=== PATIENT | male | born 1935 | race Caucasian/White ===

== ENCOUNTER 2017-05-22 15:18 | Outpatient (CLI) | payer MEDICARE, BC ==
[2017-05-22 17:32] LABS: #Eosinphils 0.4 thou/uL (0.0-0.7); #Monocytes 0.7 thou/uL (0.11-0.59); #Neutrophils 3.8 thou/uL (1.40-6.50); %Basophils 0.6 % (0.0-1.0); %Eosinophils 5.4 % (0.0-10.0); %Lymphocytes 28.7 % (21.0-51.0); Hematocrit 34.7 % (42.0-52.0); Mean Platelet Volume 7.8 fL (7.4-10.4); Red Blood Cell (RBC) Count 3.42 mill/uL (4.70-6.10); White Blood Cell (WBC) Count 6.9 thou/uL (4.8-10.8)
[2017-05-22 17:50] LABS: Anion Gap 9 mmol/L (10-20); BUN (Urea Nitrogen) 19 mg/dL (8.4-25.7); Calc. Creatinine Clearance 0 mL/min (70-130); Calcium 8.6 mg/dL (7.8-10.44); Carbon Dioxide 26 mmol/L (23-31); Chloride 107 mmol/L (98-107); Estimated GFR-MDRD Greater than 90
--- NOTE | 2017-05-23 21:06 | EKG ---
Test Reason : Blood Pressure : / mmHG Vent. 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 Sahni ([id number]) on 05/23/2017 9:06:02 PM Referred By: JEFFREY Confirmed By:DR. Bora MARIE MD
== END 2017-05-22 15:19 | disposition home or self-care (01) ==
LOC: LABBT 15:18
PROVIDERS: ATTEND Surgery
DX: Z01.818 Encounter for other preprocedural examination (principal); K40.90 Unilateral inguinal hernia, without obstruction or gangrene, not specified as recurrent
CPT/HCPCS: 80048; 85025; 93005; 93010

== ENCOUNTER 2017-05-24 12:55 | Day surgery (SDC) | payer MEDICARE, BC ==
[2017-05-22 15:51] VITALS: BMI 27.4
[2017-05-24] MEDS ORDERED: Bupivacaine/Epinephrine 0.25% 30 ML VIAL ONE (14:14)
[2017-05-24] MEDS ORDERED: Bupivacaine PF 0.5% 30 ML VIAL ONE (14:16)
[2017-05-24] MEDS ORDERED: Fentanyl 100 MCG/2 ML VIAL ONE ×2 (14:24→15:08)
[2017-05-24] MEDS ORDERED: Promethazine HCl 25 MG/ML VIAL ONE (14:24)
[2017-05-24] MEDS ORDERED: Levofloxacin 500 mg/D5W 100 ml Premix Bag ONE (14:42)
[2017-05-24] MEDS ORDERED: Lidocaine 1% PF 5 ML VIAL ONE (14:53)
[2017-05-24] MEDS ORDERED: Ondansetron HCl/PF 4 MG/2 ML Vial ONE (14:53)
[2017-05-24] MEDS ORDERED: Propofol 200 MG/20 ML VIAL ONE (14:53)
[2017-05-24] MEDS ORDERED: ePHEDrine/0.9% NaCl/PF SYRINGE 50 mg/10 ml ONE (14:53)
[2017-05-24] MEDS ORDERED: Glycopyrrolate 0.2 MG/ML 5 ML SYRINGE ONE (14:53)
[2017-05-24] MEDS ORDERED: PHENYLEPHRINE-NS 100 MCG/ML 10 ML SYRINGE ONE (14:53)
[2017-05-24] MEDS ORDERED: HYDROcodone/Acetaminophen 5/325 mg Tablet ONE (17:05)
--- NOTE | 2017-05-24 17:45 | OP ---
DATE OF PROCEDURE: 05/24/2017 PREOPERATIVE DIAGNOSIS: Right inguinal hernia. POSTOPERATIVE DIAGNOSIS: Right inguinal hernia. PROCEDURE: Right inguinal hernia repair with mesh, PHS extended. SURGEON: Martínez Alberts M.D. ANESTHESIA: General. ESTIMATED BLOOD LOSS: Minimal. COMPLICATIONS: None. SPECIMEN: None. FINDINGS: Right inguinal hernia. TECHNIQUE: The patient was taken to the operating room and placed supine on the table. After genera l anesthetic was obtained, the right groin and abdomen shaved, prepped, and draped in a sterile fashi on. An oblique incision was made above the pubic tubercle in the right lower quadrant. Cautery was used to dissect down through Syed's to expose the external oblique. External oblique fibers were o pened along the course of the external ring. Contents of the inguinal canal were resected from the b ackside of the external oblique. The ilioinguinal nerve was found and segmentally high removed to pr event postop pain. Cord structures were mobilized on the pubic tubercle using a Vy drain. Diss ection superior medially on the cord showed there to be a large indirect hernia sac. This was dissec trev away from surrounding structures. It was opened to reveal no obvious intraabdominal contents and a high ligation was performed using silk suture. The stump inverted back into the abdominal cavity. There was also a direct defect in the floor of the inguinal canal. The preperitoneal space was prosper ntly entered through the floor of the inguinal canal and bluntly dissected using a wet unraveled Ray- Delaney. The PHS extended mesh was brought into the sterile field. The underlay was placed in the prepe ritoneal space and laid out flat against the posterior abdominal wall. The mesh was laid out flat in the inguinal floor. The mesh was sewn laterally to incorporate the internal ring. The mesh was sew n distally to the pubic tubercle, medially to the transverse arch, laterally to the shelving edge of the inguinal ligament. The two ends of cut mesh were re-attached to each other at the shelving edge of the inguinal ligament to reform the internal ring. The extra mesh was tucked back under the exter nal oblique proximally. The wound was irrigated. Local anesthetic was applied. A tunneled catheter for postop pain is left on top of the mesh for postop pain control. External oblique was closed usi ng 3-0 VicrylSyed's was closed using 3-0 Vicryl, and the skin was closed with running 4-0 Monocry l and Dermabond. The patient was en route to recovery in stable condition. All instrument counts, n eedle counts, and lap counts were correct.
== END 2017-05-24 18:02 | disposition home or self-care (01) ==
LOC: SDC 12:55
PROVIDERS: ATTEND Surgery
PROC: 0YU50JZ Supplement Right Inguinal Region with Synthetic Substitute, Open Approach (ICD-10-PCS; principal; 2017-05-24)
DX: K40.90 Unilateral inguinal hernia, without obstruction or gangrene, not specified as recurrent (principal); E78.5 Hyperlipidemia, unspecified; M10.9 Gout, unspecified; J44.9 Chronic obstructive pulmonary disease, unspecified; I25.10 Atherosclerotic heart disease of native coronary artery without angina pectoris; F41.9 Anxiety disorder, unspecified; Z88.0 Allergy status to penicillin; Z88.1 Allergy status to other antibiotic agents; Z79.899 Other long term (current) drug therapy; Z90.89 Acquired absence of other organs; Z95.1 Presence of aortocoronary bypass graft; Z98.890 Other specified postprocedural states; Z86.73 Personal history of transient ischemic attack (TIA), and cerebral infarction without residual deficits
CPT/HCPCS: 49505; A4306; C1781; J1956; J2001; J2405; J2550; J2704; J3010; S0020

== ENCOUNTER 2017-07-19 10:20 | Outpatient (CLI) | payer MEDICARE, BC ==
--- NOTE | 2017-07-19 12:34 | RAD ---
TWO VIEW CHEST: COMPARISON: 07/19/16. CLINICAL HISTORY: Dyspnea. FINDINGS: The lungs are clear. Post sternotomy change again seen. Cardiac silhouette is stable in size. No s ignificant interval change. IMPRESSION: 1. No focal consolidation. 2. Stable chest. POS: [facility]
== END 2017-07-19 10:21 | disposition home or self-care (01) ==
LOC: RAD 10:20
PROVIDERS: ATTEND Internal Medicine Critical Care Medicine
DX: R06.00 Dyspnea, unspecified (principal)
CPT/HCPCS: 71046

== ENCOUNTER 2018-08-06 11:54 | Outpatient (CLI) | payer MEDICARE, BC ==
--- NOTE | 2018-08-06 13:33 | RAD ---
KUB AND UPRIGHT: History: Abdominal pain, right lower quadrant. FINDINGS: The bowel gas pattern is nonobstructed. Ventriculoperitoneal shunt tube is seen, the distal end of th e shunt tube is coiled within the pelvis. Arthritic changes of the spine and marked scoliosis convex to the left are noted. IMPRESSION: 1. No signs of obstruction or free air. 2. Ventriculoperitoneal shunt tube in place. POS: [facility]
== END 2018-08-06 11:55 | disposition home or self-care (01) ==
LOC: BICRAD 11:54
PROVIDERS: ATTEND Family Medicine
DX: R10.9 Unspecified abdominal pain (principal); Z98.2 Presence of cerebrospinal fluid drainage device
CPT/HCPCS: 36415; 74019; 80053; 80061; 84443; 85025

== ENCOUNTER 2018-08-13 14:52 | Outpatient (CLI) | payer MEDICARE, BC ==
--- NOTE | 2018-08-13 16:58 | CT ---
CT ABDOMEN WITH CONTRAST: Date: 08/13/18 COMPARISON: 10/19/11. HISTORY: 3 weeks of right upper quadrant pain. FINDINGS: Lung bases are clear. Heart size is normal. No significant pericardial fluid. Visualized aorta has a normal caliber. There is atherosclerosis at the level of the aortic valve. Heart is enlarged. No sign ificant pericardial fluid. Visualized portal vein is patent. There is some reflux of contrast suggesting right heart failure. Unremarkable gallbladder. There is a ALLERGIST IMMUNOLOGIST shunt catheter projecting over the right upper quadrant. Distal tip appears to be in th e midline of the lower abdomen. Symmetric attenuation of the psoas muscles. Liver, spleen, pancreas, and adrenal glands have appropriate attenuation and enhancement. Symmetric enhancement of the kidneys. Bilaterally, no obstructive uropathy. Visualized alimentary canal is unremarkable. No evidence of bowel obstruction. Ileocecal junction is normal. Appendix is not appreciated. Nevertheless, no inflammation of the cecal apex. Visualized colo n is unremarkable. No lytic or blastic lesions in the osseous structures. There is levorotatory scoliosis of the lumbar spine. Previous ventral hernia repair. IMPRESSION: No acute abnormality in the abdomen. POS: [facility]
== END 2018-08-13 14:53 | disposition home or self-care (01) ==
LOC: BICCT 14:52
PROVIDERS: ATTEND Family Medicine
DX: R10.9 Unspecified abdominal pain (principal)
CPT/HCPCS: 74160; 82565

== ENCOUNTER 2018-08-16 08:56 | Outpatient (CLI) | payer MEDICARE, BC ==
--- NOTE | 2018-08-16 09:48 | RAD ---
PA AND LATERAL CHEST: History: Dyspnea. Comparison: 07-19-17 FINDINGS: Heart size is within normal limits. There are atherosclerotic changes of the aorta. Post op sternotom y changes are seen. The lungs show some chronic change. There is scoliotic change of the spine. IMPRESSION: Stable chest. POS: [facility]
== END 2018-08-16 08:57 | disposition home or self-care (01) ==
LOC: RAD 08:56
PROVIDERS: ATTEND Internal Medicine Critical Care Medicine
DX: R06.00 Dyspnea, unspecified (principal)
CPT/HCPCS: 71046

== ENCOUNTER 2018-09-12 11:42 | Day surgery (SDC) | payer MEDICARE, BC ==
[2018-09-11 12:19] VITALS: BMI 27.4
--- NOTE | 2018-09-11 22:26 | HP ---
HISTORY OF PRESENT ILLNESS: This is an 83-year-old male, comes to the ED because of abdominal pain. The patient has been having abdominal pain over the last several months. He has seen Dr. Ramon Freeman in the recent past. He has abdominal CAT scan done. CAT scan is negative. The patient was also empirically treated with some pantoprazole without any symptomatic improvement. The patient's abdominal pain is predominantly in the upper abdomen. There is no nausea, no vomiting. The patient underwent EGD because of abdominal pain with negative CAT scan. He also failed to respond to treatment of pantoprazole. ALLERGIES: 1. KEFLEX. 2. PENICILLIN. MEDICAL ILLNESSES: 1. Hypertension. 2. Diabetes mellitus. 3. Hyperlipidemia. 4. Gout. 5. Prostatic hypertrophy. 6. Ventral hernia and inguinal hernia repair. 7. COPD. 8. Depression and anxiety. 9. Normal-pressure hydrocephalus, status post DRAPERY COUNSELOR shunting. 10. Coronary artery bypass graft. PHYSICAL EXAMINATION: VITAL SIGNS: Pulse is 70, blood pressure 130/70. HEENT: Conjunctivae clear. CARDIOVASCULAR SYSTEM: First and second heart sounds were heard. LUNGS: Clear to auscultation. ABDOMEN: Soft. Abdomen is minimally tender over the upper abdomen. There is no rebound or guarding. No organomegaly or masses. Denies abdominal pain. Negative CAT scan. The patient was empirically treated with pantoprazole. He had no response. PLAN: EGD. Job ID: [id number]
[2018-09-12] MEDS ORDERED: Lidocaine 1% PF 5 ML VIAL ONE (13:43)
[2018-09-12] MEDS ORDERED: PROPOFOL 200 MG/20 ML VIAL ONE (13:43)
--- NOTE | 2018-09-12 18:19 | OP ---
DATE OF PROCEDURE: 09/12/2018 PREOPERATIVE DIAGNOSES: Abdominal pain. Negative abdominal CAT scan. POSTOPERATIVE DIAGNOSES: 1. Small hiatal hernia. 2. Normal esophageal mucosa. 3. Proximal stomach shows nodular, erythematous mucosal biopsy. 4. Normal duodenum. OPERATIVE PROCEDURE: Esophagogastroduodenoscopy with biopsy. DESCRIPTION OF PROCEDURE: The patient was placed on his left lateral position and was given sedation by Anesthesia Department. A Pentax video gastroscope under direct vision passed down the oropharynx to the GE junction into the stomach and subsequently into the descending duodenum. The esophageal mucosa appears normal throughout. There was no esophageal varices. At the GE junction, no pathology seen. Small hiatal hernia. Retroflexion failed to show any pathology in the fundus or cardia. In the proximal stomach, the gastric body was left slightly nodular, quite erythematous. This was biopsied. The incisura angularis, gastric antrum, no pathology seen. The duodenal bulb, descending duodenum, no pathology. The stomach decompressed and the scope removed. DISCHARGE PLANS: This is an 83-year-old male came for the EGD for abdominal pain, which has been chronic in nature for the last several months. He has been treated with pantoprazole without symptom relief. Abdominal CAT scan showed no pathology. He underwent EGD and again, the EGD shows no findings of abdominal pain but does have mild gastritis and hiatal hernia. DISCHARGE RECOMMENDATIONS: 1. Await gastric biopsy. 2. Resume all medications as before. 3. To come back to clinic in 2 weeks. Job ID: [id number]
== END 2018-09-12 16:00 | disposition home or self-care (01) ==
LOC: SDC 11:42
PROVIDERS: ATTEND Internal Medicine Gastroenterology
PROC: 0DB68ZX Excision of Stomach, Via Natural or Artificial Opening Endoscopic, Diagnostic (ICD-10-PCS; principal; 2018-09-12)
DX: K29.50 Unspecified chronic gastritis without bleeding (principal); K44.9 Diaphragmatic hernia without obstruction or gangrene; I10 Essential (primary) hypertension; E78.5 Hyperlipidemia, unspecified; N40.0 Benign prostatic hyperplasia without lower urinary tract symptoms; M19.90 Unspecified osteoarthritis, unspecified site; M10.9 Gout, unspecified; J44.9 Chronic obstructive pulmonary disease, unspecified; F41.8 Other specified anxiety disorders; G91.2 (Idiopathic) normal pressure hydrocephalus; Z79.82 Long term (current) use of aspirin; Z79.899 Other long term (current) drug therapy; Z88.0 Allergy status to penicillin; Z95.1 Presence of aortocoronary bypass graft; Z98.2 Presence of cerebrospinal fluid drainage device
CPT/HCPCS: 88305; 88312; J2001; J2704

== ENCOUNTER 2019-01-02 13:01 | Outpatient (CLI) | payer MEDICARE, BC ==
--- NOTE | 2019-01-02 13:37 | CT ---
CT BRAIN NONCONTRAST: DATE: 01/02/2019 HISTORY: 83-year-old male with hydrocephalus presents with memory loss and dysarthria. COMPARISON: 11/30/2012 FINDINGS: Right-sided CREEL SELECTOR shunt catheter enters through right parietal anabel hole, traverses body of right latera l ventricle, crosses septum pellucidum, with distal tip near junction between body and frontal horn of left lateral ventricle. Moderate dilation of lateral third ventricles. Normal fourth ventricle. No mass effect or midline shift. No acute intra-axial or extra-axial hemorrhage. No extra-axial fluid collection. Calvarium is intact other than the anabel hole. No interval change overall. IMPRESSION: 1) no acute intracranial findings. 2) ventriculoperitoneal shunt catheter and moderate ventriculomegaly. 3) no interval change.
== END 2019-01-02 13:02 | disposition home or self-care (01) ==
LOC: SCSCT 13:01
PROVIDERS: ATTEND Neurological Surgery
DX: G91.9 Hydrocephalus, unspecified (principal); G93.89 Other specified disorders of brain; Z98.2 Presence of cerebrospinal fluid drainage device
CPT/HCPCS: 70450

== ENCOUNTER 2019-08-15 09:46 | Outpatient (CLI) | payer MEDICARE, BC ==
--- NOTE | 2019-08-15 10:21 | RAD ---
XR Chest Pa Lat @ [facility] HISTORY: Dyspnea COMPARISON: 08/16/2018 FINDINGS: The heart size is normal. The aorta is tortuous. Changes of median sternotomy are again see n. Mild chronic changes are stable in the lung boland. The lungs are well expanded without focal areas of consolidation, pneumothorax or pleural effusions. IMPRESSION: No radiographic evidence of acute cardiopulmonary process.
== END 2019-08-15 09:47 | disposition home or self-care (01) ==
LOC: RAD 09:46
PROVIDERS: ATTEND Internal Medicine Critical Care Medicine
DX: R06.00 Dyspnea, unspecified (principal)
CPT/HCPCS: 71046